=== PATIENT | male | born 1960 | race Caucasian/White ===

== ENCOUNTER 2019-02-21 20:09 | Inpatient (IN) ==
[2019-02-21] MEDS ORDERED: *HR* HYDROmorphone (PF) 1 MG/ML SYRINGE IVP ONE (20:53)
--- NOTE | 2019-02-21 21:07 | Emergency Department Note ---
Disposition Clinical Impression: Ureteral calculus, right, Hydroureter, UTI (urinary tract infection), Acute kidney injury, Obstructive uropathy, Elevated serum creatinine Hydronephrosis Qualifiers: Hydronephrosis type: unspecified Qualified Code(s): N13.30 - Unspecified hydronephrosis Disposition: Admitted As Inpatient Condition: Fair [facility] Care Provider[facility] - Forms: ED Satisfaction Letter, Work/School Release Time of Disposition: 21:31 General Adult HPI - General Chief complaint: ED Abdominal Pain Stated complaint: flank pain Time Seen by Provider: 02/21/19 20:33 Source: patient, EMS Limitations: no limitations Nursing Notes Reviewed: Yes Vital Signs Reviewed: Yes - History of Present Illness HPI Narrative: 58-year-old male presents from the [facility] for continued evaluation. Patient presented from home to the [facility] for evaluation of right-sided flank pain. Onset yesterday and initially mild. Described as sharp stabbing. Progressive. Intensive out this morning he had nausea and vomiting. Flank pain now located in the right lower flank; patient notes it has migrated since onset yesterday. Patient has no urinary pain or fever. He has never required urologic surgery for previous stones. He has a history of kidney stones. Follows with Dr. Anival Ayala, [facility]. [place] transverse patient to this facility regarding concern of impacted stone. PMH: Hypertension, hyperlipidemia, diabetes on metformin. History of bladder cancer 3 years ago. CAD with ACS status post CABG, no stent. Habits: Current every day tobacco use ROS: Positive: Right flank pain, nausea with vomiting Negative: Fever, chills, abdominal pain, dysuria Pain Scale: 9 All systems ED: reviewed and negative except as stated. Review of Systems: As Per HPI Past Medical History - Past Medical History Medical history: Reports: cancer, diabetes, hypertension, kidney stones Psychiatric history: Reports: no psych history - Social History Smoking Status: Current every day smoker Alcohol use: Reports: rarely Drug use: Reports: none Physical Exam Vital Signs Reviewed General: Patient is alert, oriented, and in no acute distress. Head: atraumatic, normocephalic Eye: normal appearance, PERRL, EOMI, no scleral icterus, no conjunctival injection ENT: mucous membranes moist, normal external ear exam Neck: normal inspection, trachea midline, full ROM Chest: normal inspection, symmetric chest rise Respiratory: Good respiratory effort. Bilateral breath sounds are clear without wheezing, crackles, or rhonchi. Cardiovascular: Regular rate and rhythm. No clicks, rubs, gallops, or murmors. Normal heart sounds. Abdomen: Bowel sounds present normoactive. Abdomen is soft, nondistended. Mild lower right flank pain. No CVA tenderness. No guarding or rebound. No organomegaly noted. Musculoskeletal: Spontaneously moving all extremities. Skin: warm, dry, intact. Neuro: GCS 15. No focal neurologic deficits observed. Psych: Patient's affect is appropriate for situation. - General Limitations: no limitations General appearance: alert, in no apparent distress Course Course Narrative: [facility]: Medications: IM Dilaudid, IM Zofran. 1 g IV Rocephin. Laboratory 21 Feb 2019 at 17:10: Serum hematology: WBC 16.5 Hgb 15.0 HCT 44.6 Platelets 303.0 Lymphocytes 4.3 Urinalysis: Clear, colorless, negative glucose, negative bilirubin, negative ketones, specific gravity 1.012, moderate blood, pH 6.5, protein 30, urobilinogen negative, nitrate positive, leukocyte esterase positive, WBC 11, RBC 134, squamous epithelial rare Serum chemistry: Sodium 138, potassium 4.1 Chloride 105 CO2 26 Glucose 206 The UA and 33 Creatinine 2.02 [comparative creatinine 01/06/19 1.15] CRP 6.5 Imaging [no disc provided from the [facility] CT abdomen pelvis without contrast per radiology read: Tiny 2 mm stone in distal right ureter, just above the bladder. The stone causes moderate right hydronephrosis and hydroureter. No stone single left ureter or either kidney. No hydronephrosis or hydroureter on the left. Spine lumbosacral 2-3 view [place] radiology impression: Findings are better visualized on concurrent CT. On this exam, no acute fracture or malalignment. Severe multilevel degenerative changes. There is severe bony neural or mental stenosis from L3-S1, worse at L5-S1. The central canal and neural gamino at her better evaluated on concurrent CT. I discussed the patient with on-call urology, Dr. Del Angel. He recommends fluids, Flomax, antibiotics. He is agreeable to see the patient in consultation with admission to the hospitalist. I discussed the patient with the hospitalist, Dr. Sosa. All questions were answered. Fluids are going. Vital Signs Temperature 97.5 F L 02/21/19 20:15 Pulse Rate 96 02/21/19 20:15 Respiratory Rate 18 02/21/19 20:15 Blood Pressure 181/99 02/21/19 20:15 O2 Sat by Pulse Oximetry 98 02/21/19 20:15 Temperature 97.5 F L 02/21/19 20:15 Pulse Rate 96 02/21/19 20:15 Respiratory Rate 18 02/21/19 20:15 Blood Pressure 181/99 02/21/19 20:15 O2 Sat by Pulse Oximetry 98 02/21/19 20:15 Oxygen Delivery Oxygen Delivery Room Air Attestation Statement - Attestation Attestation: I have seen this patient with the resident physician, I have personally evaluated this patient. I had reviewed the chart and document dictation by the resident physician and aM in agreement with the information documented by the resident physician. Please see documentation by the resident physician for complete chart including past medical history, family medical history, review of systems, current history and physical and laboratory and imaging studies. I was present for all procedures, provided direct supervision for all procedures, was present for the entirety of all procedures and provided direct guidance during the procedures. Please see documentation by the resident physician for any procedures performed.
[2019-02-21] MEDS ORDERED: 0.9 % Sodium Chloride 1,000 ML IVC ONE (21:28)
--- NOTE | 2019-02-21 21:31 | Emergency Department Note ---
Disposition Clinical Impression: Obstructive uropathy, Elevated serum creatinine, UTI (urinary tract infection) Disposition: Admitted As Inpatient Condition: Fair [facility]errals: [facility] [Primary Care Provider] - Forms: ED Satisfaction Letter, Work/School Release Time of Disposition: 21:31 General Adult HPI - General Chief complaint: ED Abdominal Pain Stated complaint: flank pain Time Seen by Provider: 02/21/19 20:33 Source: patient, EMS Limitations: no limitations - History of Present Illness Pain Scale: 9 Past Medical History - Past Medical History Medical history: Reports: cancer, diabetes, hypertension, kidney stones Psychiatric history: Reports: no psych history - Social History Smoking Status: Current every day smoker Alcohol use: Reports: rarely Drug use: Reports: none Physical Exam - General Limitations: no limitations General appearance: alert, in no apparent distress Course Vital Signs Temperature 97.5 F L 02/21/19 20:15 Pulse Rate 96 02/21/19 20:15 Respiratory Rate 18 02/21/19 20:15 Blood Pressure 181/99 02/21/19 20:15 O2 Sat by Pulse Oximetry 98 02/21/19 20:15 Temperature 97.5 F L 02/21/19 20:15 Pulse Rate 96 02/21/19 20:15 Respiratory Rate 18 02/21/19 20:15 Blood Pressure 181/99 02/21/19 20:15 O2 Sat by Pulse Oximetry 98 02/21/19 20:15 Oxygen Delivery Oxygen Delivery Room Air Attestation Statement - Attestation Attestation: I have seen this patient with the resident physician, I have personally evaluated this patient. I had reviewed the chart and document dictation by the resident physician and aM in agreement with the information documented by the resident physician. Please see documentation by the resident physician for complete chart including past medical history, family medical history, review of systems, current history and physical and laboratory and imaging studies. I was present for all procedures, provided direct supervision for all procedures, was present for the entirety of all procedures and provided direct guidance during the procedures. Please see documentation by the resident phys ician for any procedures performed. Patient presents emergency Department from the [place] for further evaluation and management and admission to the hospital for obstructive uropathy. I reviewed the patient's chart he has a 2 mm stone at the right UVJ with moderate hydronephrosis and hydroureter, and has a increased serum creatinine of 2.02 from 1.15 from 2 months ago, with a white blood cell count of 16,500 with a bandemia, as well as urinalysis suggestive of UTI positive nitrites positive bacteria. Patient received IV pain medication [facility] We contacted urology who is providing consultation, and recommended Flomax, which we had already ordered, the patient requested some other pain medication he was given more IV hydromorphone. Hospitalist was contacted for admission and will this patient for further evaluation and management of the above findings. Patient was hemodynamically normal, without significant tachycardia or hypotension or fever here in the ER. Admitted to medicine for further management.
[2019-02-21] MEDS ORDERED: Naloxone 0.4 MG/ML INJ IVP PRN (21:52)
[2019-02-21] MEDS ORDERED: Ondansetron 4 MG/2 ML VIAL IVP PRN (21:52)
--- NOTE | 2019-02-21 21:52 | Internal Med History&Physical ---
<Giovani Rizo S - Last Filed: 02/21/19 22:19> Date of Encounter: 02/21/19 Time of Encounter: 22:19 Internal Medicine - H&P: HPI Chief complaint: kidney stnoe Admitted From: Emergency Dept Plans for Post Hospital Care: Home History of present illness: Mr. Varghese is a 58 year old male with PMH of T2DM, morbid obesity, hx of CABG, hx of CHF (no records), HTN, and tobacco abuse. He presents as a transfer from the [place] for a 1 day hx of right flank pain, right sided. He denies any radiation. He denies any fevers/chills but did have some nausea/vomiting this morning, nonbloody. He states he has had a decreased appetite as of today. He states he has never been to the hospital for a kidney stone before but thinks he might have had one in the past. He states that he has had no recent diet changes but has tried to cut down on pop. He has no family hx of kidney stones. At the [facility] he was found to have a UTI and kidney stone on imaging. He was given IM rocephin 1g. He was then transferred to [facility] for further workup and evaluation. He was started on fluids and urology was consulted. He will be made NPO after midnight in case of intervention. Past Med Surg Social Fam HX - Past Medical History Medical history: cancer, diabetes, hypertension, kidney stones Additional medical history: Bladder cancer Psychiatric history: no psych history - Past Surgical History Additional surgical history: Double bypass - Social History Smoking Status: Current every day smoker Alcohol use: rarely Drug use: none - Family History Mother Adopted: No Hx Family Endocrine Disorder: Yes Father Hx Family Endocrine Disorder: Yes (t2dm) All Systems PM: A 10-system review of systems was performed and is negative for pertinent findings except as documented above in the HPI. - Constitutional Constitutional: anorexia, no chills, no fever(s) - EENT Eyes: no blurry vision, no change in vision Ears: no tinnitus - Cardiovascular Cardiovascular ROS IM: no chest pain, no dyspnea, no irregular heart rhythm, no palpitations - Respiratory Respiratory: no cough, no dyspnea, no dyspnea on exertion - Gastrointestinal Gastrointestinal: vomiting, no abdominal pain - Genitourinary Genitourinary ROS male: dysuria, flank pain, no hematuria - Musculoskeletal Musculoskeletal ROS IM: back pain, no numbness, no tingling - Integumentary Integumentary IM: no non-healing lesions, no unusual bruising - Neurological Neurological ROS: no dizziness, no numbness, no tingling - Psychiatric Psychiatric: no confusion - Hematologic/Lymphatic Hematologic/Lymphatic: no easy bleeding, no easy bruising - Constitutional Vitals: Temp Pulse Resp BP Pulse Ox 97.5 F L 96 18 181/99 98 02/21/19 20:15 02/21/19 20:15 02/21/19 20:15 02/21/19 20:15 02/21/19 20:15 General appearance: Present: cooperative, A&O X 3, obese Exam: general - aox3, no acute distress, sitting in bed speaking in full sentences heent - ncat, MMM eyes - no scleral icterus cardio - s1s2, cta, no mrg, tacycardia lungs - decreased breath sounds, not in respiratory distress, no wheeze/rhonchi/rales abd - soft, NTND, obese, hernia abd side, surgical scar on right abd back - mild cva tenderness right side, no bruising extremities - moves all extremities equally, sensation intact, strength 5/5, no edema neuro - no fnd psych - appropriate mood/affect skin - warm, dry, intact - Assessment and Plan (1) Sepsis Current Visit: Yes Status: Acute Assessment and plan: Pt with 1 day hx of right flank pain - went to the [facility], where he was given 1g rocephin IM - labs revealed a UTI and CT evidence of stone - sepsis secondary to complicated UTI, kidney stone [facility] CT report, disc not provided: - CT abdomen pelvis without contrast per radiology read: Tiny 2 mm stone in distal right ureter, just above the bladder. The stone causes moderate right and hydroureter. No stone single left ureter or either kidney. No hydronephrosis or hydroureter on the left - Spine lumbosacral 2-3 view [place] radiology impression: Findings are better visualized on concurrent CT. On this exam, no acute fracture or malalignment. Severe multilevel degenerative changes. There is severe bony neural or mental stenosis from L3-S1, worse at L5-S1. The central canal and neural gamino at her better evaluated on concurrent CT. UA positive for nitrates, leukocyte esterase and WBC Meets SIRS criteria for white count and tacycardia Plan: - pt receiving bolus of fluids now, will continue IVF as per sepsis protocol for a total of ~3.6 L - rocephin 2g IVP q24hr, received day #1 at [facility] - blood cx pending - urine cx pending - tamsulosin daily - oxycodone prn pain - strain urine for stone prn voiding - zofran prn nausea/vomiting - consult to urology, possible intervention tomorrow - FEN: ADA diet, NPO after midnight for urology intervention - dispo: will be admitted for further treatment, resolution of sepsis Qualifiers: Sepsis type: sepsis due to unspecified organism Qualified Code(s): A41.9 - Sepsis, unspecified organism (2) Acute kidney injury Current Visit: Yes Status: Acute Assessment and plan: Creatinine elevated as per [facility] labs. - Creatinine 2.02 [comparative creatinine 01/06/19 1.15 - likely pre-renal from poor PO intake vs post renal from obstruction Plan: - avoid nephrotoxins - I&O strict - renally dose medication if needed - continue to monitor renal fxn with AM labs - IVF as above - urology consulted, ?intervention in AM (3) Ureteral calculus, right Current Visit: Yes Status: Acute Assessment and plan: CT abdomen pelvis without contrast per radiology read: Tiny 2 mm stone in distal right ureter, just above the bladder. The stone causes moderate right hydronephrosis and hydroureter. No stone single left ureter or either kidney. No hydronephrosis or hydroureter on the left. Spine lumbosacral 2-3 view [place] radiology impression: Findings are better visualized on concurrent CT. On this exam, no acute fracture or malalignment. Severe multilevel degenerative changes. There is severe bony neural or mental stenosis from L3-S1, worse at L5-S1. The central canal and neural gamino at her better evaluated on concurrent CT. See plan as above. (4) Hydronephrosis Current Visit: Yes Status: Acute Assessment and plan: As evidenced on CT scan, see above for plan. Qualifiers: Hydronephrosis type: with renal calculous obstruction Qualified Code(s): N13.2 - Hydronephrosis with renal and ureteral calculous obstruction (5) CHF (congestive heart failure) Current Visit: No Status: Chronic Assessment and plan: Pt reports hx of CHF, no records of previous ECHO on [facility]. NOT in acute exacerbation. Qualifiers: Heart failure type: unspecified Heart failure chronicity: chronic Qualified Code(s): I50.9 - Heart failure, unspecified (6) History of two vessel coronary artery bypass graft Current Visit: No Status: Chronic Assessment and plan: pt is s/p double bypass. No hx of cath report on [employer]. (7) Tobacco abuse Current Visit: No Status: Chronic Assessment and plan: current everyday smoker, offered nrt and declines. (8) T2DM (type 2 diabetes mellitus) Current Visit: No Status: Chronic Assessment and plan: Pt with hx of T2DM. Will hold home rx when reconciled. MDSS. ADA diet. Qualifiers: Diabetes mellitus terminal clerk insulin use: unspecified senior care insulin use status Diabetes mellitus complication status: with unspecified complications Qualified Code(s): E11.8 - Type 2 diabetes mellitus with unspecified complications (9) Obesity Current Visit: No Status: Chronic Assessment and plan: BMI 38.7, counsled. Qualifiers: Obesity type: due to excess calories Obesity classification: adult class 2 (BMI 35 - 39.9) Serious obesity comorbidity presence: without serious comorbidity Body mass index: BMI 38.0-38.9 Qualified Code(s): E66.09 - Other obesity due to excess calories; Z68.38 - Body mass index (BMI) 38.0-38.9, adult (10) DVT prophylaxis Current Visit: Yes Status: Acute Assessment and plan: sq heparin (11) UTI (urinary tract infection) Current Visit: Yes Status: Acute Assessment and plan: [facility]rites and leukocyte esterase. 11 WBC, 134 RBC, rare squamous - see plan as above Qualifiers: Urinary tract infection type: acute cystitis Hematuria presence: without hematuria Qualified Code(s): N30.00 - Acute cystitis without hematuria (12) Hypertension Current Visit: Yes Status: Acute Assessment and plan: BP systolic 180's. Lopressor IVP q6hr prn SBPP>160, hold for SBP<100. Will restart home meds when reconciled. Qualifiers: Hypertension type: essential hypertension Qualified Code(s): I10 - Essential (primary) hypertension - Time Spent With Patient Total time spent is greater than 50% in coordination of care (as documented) at patient's floor/unit and/or counseling patient: 25 - 35 minutes <Dennis Sosa - Last Filed: 02/21/19 23:13> Date of Encounter: 02/21/19 Internal Medicine - H&P: HPI History of present illness: Mr. Varghese is a 58 year old male All Systems PM: A 10-system review of systems was performed and is negative for pertinent findings except as documented above in the HPI. - Constitutional Vitals: Temp Pulse Resp BP Pulse Ox 97.5 F L 96 18 181/99 98 02/21/19 20:15 02/21/19 20:15 02/21/19 20:15 02/21/19 20:15 02/21/19 20:15 - Assessment and Plan (1) Ureteral calculus, right Current Visit: Yes Status: Acute (2) Hydronephrosis Current Visit: Yes Status: Acute Qualifiers: Hydronephrosis type: with renal calculous obstruction Qualified Code(s): N13.2 - Hydronephrosis with renal and ureteral calculous obstruction (3) UTI (urinary tract infection) Current Visit: Yes Status: Acute Qualifiers: Urinary tract infection type: acute cystitis Hematuria presence: without hematuria Qualified Code(s): N30.00 - Acute cystitis without hematuria (4) Acute kidney injury Current Visit: Yes Status: Acute (5) CHF (congestive heart failure) Current Visit: No Status: Chronic Qualifiers: Heart failure type: unspecified Heart failure chronicity: chronic Qualified Code(s): I50.9 - Heart failure, unspecified (6) History of two vessel coronary artery bypass graft Current Visit: No Status: Chronic (7) Tobacco abuse Current Visit: No Status: Chronic (8) T2DM (type 2 diabetes mellitus) Current Visit: No Status: Chronic Qualifiers: Diabetes mellitus terminal clerk insulin use: unspecified senior care insulin use status Diabetes mellitus complication status: with unspecified complications Qualified Code(s): E11.8 - Type 2 diabetes mellitus with unspecified complications (9) Obesity Current Visit: No Status: Chronic Qualifiers: Obesity type: due to excess calories Obesity classification: adult class 2 (BMI 35 - 39.9) Serious obesity comorbidity presence: without serious comorbidity Body mass index: BMI 38.0-38.9 Qualified Code(s): E66.09 - Other obesity due to excess calories; Z68.38 - Body mass index (BMI) 38.0-38.9, adult (10) DVT prophylaxis Current Visit: Yes Status: Acute (11) Sepsis Current Visit: Yes Status: Acute Qualifiers: Sepsis type: sepsis due to unspecified organism Qualified Code(s): A41.9 - Sepsis, unspecified organism (12) Hypertension Current Visit: Yes Status: Acute Qualifiers: Hypertension type: essential hypertension Qualified Code(s): I10 - Essential (primary) hypertension - Time Spent With Patient Total time spent is greater than 50% in coordination of care (as documented) at patient's floor/unit and/or counseling patient: - Attending Attestation I have seen and examined the patient with Dr. Rizo and agree with his/her assessment and plan. 58-year-old male with history of diabetes, CAD status post CABG, hypertension, nephrolithiasis, was transfer from [place] due to right flank pain and was noted to have distal right ureteric stone associated with hydronephrosis. Creatinine was elevated at 2.0 from baseline of 1.1. Urinalysis was also positive for nitrite and leukocyte esterase and patient also had leukocytosis of 16. On exam, patient is not febrile and hemodynamically stable. He does not have any significant R CVA tenderness and reports improvement in his symptoms after the administration of pain meds. Will continue IV fluid, IV Rocephin (1 dose given at the [facility]), and keep him nothing by mouth after midnight in case he needs any urologic intervention tomorrow morning. Appreciate Urology input. Dennis Sosa MD
[2019-02-21] MEDS ORDERED: D5% in Water 1,000 ML IVC PRN (21:53)
[2019-02-21] MEDS ORDERED: *HR* Dextrose 50 % in Water (Syg) 50 ML SYRINGE IVP PRN (21:53)
[2019-02-21] MEDS ORDERED: Dextrose Gel 15 GM/37.5 ML TUBE PO PRN ×2 (21:53)
[2019-02-21] MEDS ORDERED: Insulin LISPRO 300 UNITS/3 ML VIAL SQ SCH (22:00)
[2019-02-21] MEDS ORDERED: *HR* Metoprolol 5 MG/5 ML VIAL IVP PRN (22:04)
[2019-02-21] MEDS ORDERED: OXYCODONE Oral CONC 10 MG/0.5 ML ORAL.SYG SL PRN (22:23)
[2019-02-22] MEDS ORDERED: cefTRIAXone 2,000 MG in Water for inj. (sterile) 20 ML 20 ML IVP SCH ×3 (00:01→17:00)
[2019-02-22] MEDS: Insulin LISPRO 300 UNITS/3 ML VIAL SQ SCH ×4 (01:59→17:03)
[2019-02-22] MEDS: *HR* Heparin 5,000 UNIT/ML VIAL SQ SCH ×3 (01:59→17:02)
[2019-02-22] MEDS: 0.9 % Sodium Chloride 1,000 ML IVC SCH ×2 (03:25→22:02)
[2019-02-22 07:27] LABS: Sodium, Urine 78.5 mEq/L
[2019-02-22 08:05] LABS: Hematocrit 43.4 % (37.5-50.1); Hemoglobin 13.8 g/dL (12.9-16.9); Mean Corpuscular HGB Conc 31.8 g/dL (31.6-35.5); Mean Corpuscular Hemoglobin 29.1 pg (28.0-33.3); Mean Corpuscular Volume 91.6 fL (83.0-100.0); Mean Platelet Volume 10.2 fL (9.4-12.4); Platelet Count 255 K/mcL (140-400); Red Blood Count 4.74 M/mcL (4.19-5.50); Red Cell Distribution Width 13.4 % (11.5-14.5)
[2019-02-22 08:24] LABS: Calcium 8.9 mg/dL (8.6-10.3); Potassium 4.4 mEq/L (3.5-5.1)
--- NOTE | 2019-02-22 09:30 | Urology - Consult Note ---
Date of Encounter: 02/22/19 Time of Encounter: 08:40 - Assessment and Plan (1) Acute kidney injury Current Visit: Yes Status: Acute Assessment and plan: Patient is a 58-year-old male who presents with acute kidney injury following a 2 mm ureteral stone. Patient is tentatively scheduled for ureteroscopic stone extraction later this afternoon with Dr. Pacheco. Anticipate renal function to return to baseline postoperatively. (2) UTI (urinary tract infection) Current Visit: Yes Status: Acute Assessment and plan: Patient is a 58-year-old male who presents with a nitrate positive urinary tract infection. Urine culture is pending. Vital signs are currently stable and afebrile. White blood cell count is elevated to 15.8. Patient is receiving IV Rocephin. Qualifiers: Urinary tract infection type: acute cystitis Hematuria presence: without hematuria Qualified Code(s): N30.00 - Acute cystitis without hematuria (3) Ureteral calculus, right Current Visit: Yes Status: Acute Assessment and plan: Patient is a 58-year-old male who presents with a 2 mm right distal ureteral stone. Patient's pain is currently well controlled. We discussed surgical risks and benefits, and patient verbalized understanding. Patient signed consent for a cystoscopy, right retrograde pyelogram and right ureteral stent placement. Patient will remain nothing by mouth and anticipate surgery later this afternoon with Dr. Pacheco. Urology CN:HPI Consult date: 02/22/19 Reason for consult Urology: Other (right ureteral stone; UTI) Requesting physician: Melo Eli History of present illness: Patient is a 58-year-old male who presents with a 2 mm right UVJ stone, acute kidney injury and urinary tract infection. Patient initially presented to the [facility] with a one-day history of right flank pain and nausea. Patient reports no prior confirmed history of renal stones, although, he believes he may have passed one at home approximately 6 months ago. Patient has a positive family history of renal stones through his daughter. Patient underwent a CT of the abdomen and pelvis at the [facility] revealing a distal, 2 mm right ureterovesical stone and a urinalysis was nitrite positive. Patient's white blood cell count is 16.5. Patient denies any fever, chills, gross hematuria, dysuria, frequency, urgency or incontinence. Serum creatinine on admission was 2.02, and current serum creatinine is 2.64. Patient has a h istory of bladder cancer, and he has not experienced a recurrence in 3 years. Patient undergoes annual cystoscopy with [facility] urologist, Dr. Ayala, in [place]. Patient underwent 2 rounds of BCG, chemotherapy and TURBT 2. Patient has a long-standing history of tobacco abuse. Past Med Surg Social Fam HX - Past Medical History Medical history: cancer, diabetes, hypertension, kidney stones Additional medical history: Bladder cancer Psychiatric history: no psych history - Past Surgical History Additional surgical history: Double bypass - Social History Smoking Status: Current every day smoker Packs per day: 1 Smokeless Tobacco Status: No Alcohol use: none Drug use: none - Family History Mother Adopted: No Hx Family Endocrine Disorder: Yes Father Hx Family Endocrine Disorder: Yes (t2dm) Medications and Allergies Aspirin [Adult Aspirin] 81 mg PO DAILY 02/21/19 [History] Gabapentin [Neurontin] 300 mg PO HS 02/21/19 [History] GlipiZIDE [Glipizide Xl] 7.5 mg PO BID 02/21/19 [History] Metformin HCl [Glucophage] 1,000 mg PO BID 02/21/19 [History] Metoprolol [Lopressor] 25 mg PO BID 02/21/19 [History] Oxybutynin [Ditropan] 5 mg PO DAILY 02/21/19 [History] Ranitidine HCl [Zantac] 300 mg PO HS 02/21/19 [History] Simvastatin [Zocor] 40 mg PO HS 02/21/19 [History] Tamsulosin HCl [Flomax] 0.4 mg PO DAILY 02/21/19 [History] Allergy/AdvReac Type Severity Reaction Status Date / Time No Known Allergies Allergy Verified 02/21/19 22:41 Review of Systems - Constitutional no chills, no fatigue, no fever(s) - EENT Nose, mouth and throat: no dizziness, no headache(s) - Cardiovascular no chest pain, no diaphoresis, no dyspnea - Respiratory no cough, no dyspnea - Gastrointestinal nausea, no abdominal pain, no vomiting - Genitourinary flank pain, no change in urinary stream, no difficulty urinating, no dysuria, no hematuria, no urinary frequency, no urinary hesitancy, no urinary incontinence, no urinary urgency - Musculoskeletal back pain, no muscle weakness - Integumentary no erythema, no rash - Neurological no confusion, no syncope - Psychiatric no anxiety, no confusion - Hematologic/Lymphatic no easy bleeding, no easy bruising - Allergic/Immunologic no throat swelling, no wheezing Exam Initial Vital Signs Temp Pulse Resp BP Pulse Ox 97.5 F L 96 18 181/99 98 02/21/19 20:15 02/21/19 20:15 02/21/19 20:15 02/21/19 20:15 02/21/19 20:15 - General physical appearance Present: no distress, no pain - Eyes Present: PERRL, normal ocular movement - ENT Present: normal nares, no hearing loss, no congestion - Neck Present: no masses, trachea midline, no lymphadenopathy - Respiratory Present: normal respiratory effort - Cardiovascular Cardiovascular exam IM: RRR - Abdomen Abdomen: Present: soft, non tender - Integumentary Present: no rash, no abnormal pigmentation - Neurologic Present: normal coordination - Musculoskeletal Present: other (normal posture ) Urology Results - Labs 02/22/19 07:14 02/22/19 07:14 Abnormal lab results WBC 15.8 K/mcL (4.3-11.1) H 02/22/19 07:14 BUN 36 mg/dL (6-20) H 02/22/19 07:14 2.64 mg/dL (0.70-1.30) H 02/22/19 07:14 Est GFR ( Amer) 30 (> 60) L 02/22/19 07:14 Est GFR (Non-Af Amer) 25 (> 60) L 02/22/19 07:14 Glucose 198 mg/dL (70-105) H 02/22/19 07:14 302 (280-300) H 02/22/19 07:14 Diabetes panel 02/22/19 Range/Units 07:14 Sodium 139 (136-145) mEq/L Potassium 4.4 (3.5-5.1) mEq/L Chloride 104 (98-107) mEq/L Carbon Dioxide 25 (23-29) mEq/L BUN 36 H (6-20) mg/dL Creatinine 2.64 H (0.70-1.30) mg/dL Glucose 198 H (70-105) mg/dL Calcium 8.9 (8.6-10.3) mg/dL Calcium panel 02/22/19 Range/Units 07:14 Calcium 8.9 (8.6-10.3) mg/dL Pituitary panel 02/22/19 Range/Units 07:14 Sodium 139 (136-145) mEq/L Potassium 4.4 (3.5-5.1) mEq/L Chloride 104 (98-107) mEq/L Carbon Dioxide 25 (23-29) mEq/L BUN 36 H (6-20) mg/dL Creatinine 2.64 H (0.70-1.30) mg/dL Glucose 198 H (70-105) mg/dL Calcium 8.9 (8.6-10.3) mg/dL Adrenal panel 02/22/19 Range/Units 07:14 Sodium 139 (136-145) mEq/L Potassium 4.4 (3.5-5.1) mEq/L Chloride 104 (98-107) mEq/L Carbon Dioxide 25 (23-29) mEq/L BUN 36 H (6-20) mg/dL Creatinine 2.64 H (0.70-1.30) mg/dL Glucose 198 H (70-105) mg/dL Calcium 8.9 (8.6-10.3) mg/dL All other labs normal. - Imaging CT scan - abdomen: report reviewed CT scan - pelvis: report reviewed Consult Discharge Plan - Plan [facility] Care Provider[facility] -
[2019-02-22] MEDS ORDERED: traMADol 50 MG TABLET PO PRN ×2 (10:32→14:45)
[2019-02-22] MEDS ORDERED: OXYCODONE Oral CONC 10 MG/0.5 ML ORAL.SYG SL PRN ×2 (10:39→14:45)
--- NOTE | 2019-02-22 13:02 | Anesthesia Evaluation PreOp ---
Date of Encounter: 02/22/19 Time of Encounter: 13:00 - Past History Planned Operation: Cysto, Right retrograde pyelogram, Stent Insertion Cardiac History: CHF, HTN, Cardiac Surgery (x2 approx & years ago) Pulmonary History: Smoker [employer] History: Other Other Medical History: Renal (Stones, hydroneprosis, YANETH), Diabetes Type II, Other (obesity, bladder Ca ( 2 rounds of BCG, chemotherapy and TURBT 2)) Anesthesia History: Past Anesthesia (CABG, TURBT) Alcohol Use: none Drug use: none Medications and Allergies Aspirin [Adult Aspirin] 81 mg PO DAILY 02/21/19 [History] Gabapentin [Neurontin] 300 mg PO HS 02/21/19 [History] GlipiZIDE [Glipizide Xl] 7.5 mg PO BID 02/21/19 [History] Metformin HCl [Glucophage] 1,000 mg PO BID 02/21/19 [History] Metoprolol [Lopressor] 25 mg PO BID 02/21/19 [History] Oxybutynin [Ditropan] 5 mg PO DAILY 02/21/19 [History] Ranitidine HCl [Zantac] 300 mg PO HS 02/21/19 [History] Simvastatin [Zocor] 40 mg PO HS 02/21/19 [History] Tamsulosin HCl [Flomax] 0.4 mg PO DAILY 02/21/19 [History] Allergy/AdvReac Type Severity Reaction Status Date / Time No Known Allergies Allergy Verified 02/21/19 22:41 - Meds/Allergy Pre-op Review Medications Reviewed: Yes Allergies Reviewed: Yes Beta Blockers on Current Med List: Yes If Beta Blockers taken, Date/Time (Last Dose taken): 02:08 today Anesthesia Results - Labs 02/22/19 07:14 02/22/19 07:14 Anesthesia Exam Vital Signs/O2 Sat, Most Current Temp Pulse Resp BP Pulse Ox 97.8 F 82 18 156/90 92 02/22/19 11:35 02/22/19 11:35 02/22/19 11:35 02/22/19 11:35 02/22/19 11:35 Blood glucose: 164 NPO (# of Hours): > 8 hrs Pain Scale: 0 Pain Scale Used: Numeric (1 - 10) - HEENT Pupil (Motor): Pupils equal, EOMI Mallampati: III Teeth: Normal Oral Opening: Greater than 3 - [employer] LOC: Oriented [employer] Motor: Normal RUE, Normal LUE, Normal RLE, Normal LLE, Normal Face [employer] Sensory: Normal: RUE, LUE, RLE, LLE, Face - Cardiac Rhythm: Regular Murmur: None JVD: No Carotid Bruit: No - Pulmonary Breath Sounds: bilateral Clear Respiratory Effort: Symmetrical Anesthesia Assess/Plan ASA Score: 3 Level of consciousness: Cooperative Anesthetic Plan: General Autologous Blood: Yes Monitoring Plan: Standard Monitors Recovery Plan: PACU
[2019-02-22] MEDS ORDERED: Lidocaine -MPF 2% 2 ML VIAL ONE (13:09)
[2019-02-22] MEDS ORDERED: *HR* FentaNYL (PF) 100 MCG/2 ML VIAL ONE (13:09)
[2019-02-22] MEDS ORDERED: *HR* Midazolam HCl 2 MG/2 ML VIAL ONE (13:09)
[2019-02-22] MEDS ORDERED: Isovue-300 50 ML VIAL ONE (13:09)
[2019-02-22] MEDS ORDERED: *HR* Propofol 200 MG/20 ML VIAL IVP ONE ×2 (13:10→13:38)
[2019-02-22] MEDS ORDERED: Albuterol 2.5 MG/3 ML NEBULIZER IH ONE ×2 (13:51→14:45)
[2019-02-22] MEDS ORDERED: *HR* OxyCODONE Immed Rel 5 MG TABLET PO PRN ×2 (13:51→14:45)
[2019-02-22] MEDS ORDERED: *HR* Promethazine 25 MG/ML VIAL IVP PRN ×2 (13:51→14:45)
[2019-02-22] MEDS ORDERED: Ondansetron 4 MG/2 ML VIAL IVP ONE ×2 (13:51→14:45)
[2019-02-22] MEDS ORDERED: *HR* HYDROmorphone (PF) 1 MG/ML SYRINGE IVP PRN ×2 (13:51→14:45)
[2019-02-22] MEDS ORDERED: *HR* Labetalol 20 MG/4 ML SYRINGE IVP PRN ×2 (13:51→14:45)
--- NOTE | 2019-02-22 14:42 | Operative Note ---
Date of procedure: 02/22/19 Pre-op diagnosis: Right ureteral catheter was, UTI Post-op diagnosis: same Procedure: Cystoscopy, right retrograde ureteral pyelography with intraoperative interpretation of radial graphic images in real time by surgeon to facilitate procedure, right double-J stent placement, attempted basket extraction. Implants: 6 x 26 right double-J stent Complications: None Anesthesia: GETA Surgeon: Fortunato Pacheco Was there an property management assistant present: No Estimated blood loss (cc): 0 Specimen: None Condition: stable Disposition: PACU Procedure in Detail: 58-year-old gentleman transferred from the [facility] to our facility for obstructing distal right ureteral stone in setting of active UTI. Urgent urinary diversion is indicated. The patient brought to the operating theater placed on table in supine position. Is identified by name and administered a general anesthetic. The patient placed dorsal lithotomy prepped and draped in the normal sterile fashion. A cystoscope was inserted urethral meatus and advanced with the bladder under direct visualization. There were no mucosal abdomen bowel these. An open-ended catheter was placed the tip of the right ureteral orifice and with gentle injection of contrast a right retrograde ureteropyelogram was performed. Intraoperative interpretation of radial graphic images in real time by surgeon revealed obstruction at the level the distal ureter with proximal hydroureteronephrosis. No definitive filling defect was appreciated. Based on this finding urinary diversion was indicated. The stone was noted be at the level of the ureterovesical junction via CT report. Based on this finding through the existing open-ended catheter a stone basket was placed in the distal ureter. 3 cancer used to entrap a stone in the basket. Known stone was captured. Thus, over the existing Glidewire a 6 x 26 right of the stent was advanced. Once the stent was confirmed in good position fluoroscopically the treatment was completed.
[2019-02-22] MEDS ORDERED: *HR* Dextrose 50 % in Water (Syg) 50 ML SYRINGE IVP PRN (14:45)
[2019-02-22] MEDS ORDERED: Ondansetron 4 MG/2 ML VIAL IVP PRN (14:45)
[2019-02-22] MEDS ORDERED: Naloxone 0.4 MG/ML INJ IVP PRN (14:45)
[2019-02-22] MEDS ORDERED: Dextrose Gel 15 GM/37.5 ML TUBE PO PRN ×2 (14:45)
[2019-02-22] MEDS ORDERED: 0.9 % Sodium Chloride 1,000 ML IVC SCH (14:45)
[2019-02-22] MEDS ORDERED: *HR* Metoprolol 5 MG/5 ML VIAL IVP PRN (14:45)
[2019-02-22] MEDS ORDERED: D5% in Water 1,000 ML IVC PRN (14:45)
--- NOTE | 2019-02-22 15:20 | Internal Med Progress Note ---
Hospitalist Progress Note - Encounter Date of Encounter: 02/22/19 Time of Encounter: 15:18 - Subjective Interval History: I have seen and evaluated the patient at bedside. Patient reports resolution of his abdominal and back pain. denies chest pain, shortness of breath, nausea or vomiting - Exam Vitals: Temp Pulse Resp BP Pulse Ox 98.4 F 95 14 144/87 94 02/22/19 15:14 02/22/19 15:14 02/22/19 15:14 02/22/19 15:14 02/22/19 15:14 Exam: Vitals: Reviewed General: Obese, Alert and oriented x4. In no distress Skin: multiple healed scars HEENT: EOM, pupils equal, round and reactive. Cardiovascular: RRR, normal S1 & S2, no rubs, murmurs or gallops. Lungs: CTA b/l, no wheezes or crackles. Abdomen: Obese, soft, non-tender, no rigidity. Extremities: No deformity, no edema or tenderness, no joint swelling or clubbing. Neurological: Normal cognition and motor skills. Rest of the physical exam is non contributory - Assessment and Plan (1) Ureteral calculus, right Current Visit: Yes Status: Acute Assessment and Plan: urology consulted. patient scheduled for stone removal today. continue pain control with oxycodone 5mg SubL Q6HRs. (2) Hydronephrosis Current Visit: Yes Status: Acute Assessment and Plan: plan of care as above. (3) UTI (urinary tract infection) Current Visit: Yes Status: Acute Assessment and Plan: Continue ceftriaxone 1 g IV every 24 hours. Urine culture sent and the report. (4) Acute kidney injury Current Visit: Yes Status: Acute Assessment and Plan: Most likely obstructive uropathy. Continue IV hydration, decrease fluids to 75 ml/hr x2 bags total, monitor for signs of volume overload. patient with a Hx of CHF. will re-assess kidney function in the morning. (5) CHF (congestive heart failure) Current Visit: No Status: Chronic Assessment and Plan: patient is euvolemic. not on diuretics as outpatient. TTE order as patient needs IV hydration due to YANETH. and unknown E.F. strict intake and output (6) History of two vessel coronary artery bypass graft Current Visit: No Status: Chronic (7) Tobacco abuse Current Visit: No Status: Chronic (8) T2DM (type 2 diabetes mellitus) Current Visit: No Status: Chronic Assessment and Plan: carb controlled diet. will add levemir 5 units hs, continue lispro low dose sliding scale ac. (9) Obesity Current Visit: No Status: Chronic (10) Sepsis Current Visit: Yes Status: Acute (11) Hypertension Current Visit: Yes Status: Suspected DVT Prophylaxis: intermittent pneumatic compression for dvt prophylaxis - Summary of Assessment and Plan Summary of Assessment and Plan: patient to remain the hospital due to YANETH. on IV hydration. schedule for renal stone removal. - Time Spent with Patient Total time spent is greater than 50% in coordination of care (as documented) at patient's floor/unit and/or counseling patient: Greater than 35 minutes (40) Plan of Care Discussed with: patient (and the nurse.) Internal Medicine: Result - Labs CBC & Chem 7: 02/22/19 07:14 02/22/19 07:14 Labs: Short CBC 02/22/19 Range/Units 07:14 WBC 15.8 H (4.3-11.1) K/mcL Hgb 13.8 (12.9-16.9) g/dL Hct 43.4 (37.5-50.1) % Plt Count 255 (140-400) K/mcL BMP 02/22/19 07:14 Sodium 139 Potassium 4.4 Chloride 104 Carbon Dioxide 25 BUN 36 H Creatinine 2.64 H Glucose 198 H Calcium 8.9 - Impressions Impressions Retrograde Pyelogram 02/22/19 14:28 IMPRESSION: Intraprocedural fluoroscopic spot images as above. See separate procedure report for more information. D/ / Jay Johnston MD / Jay Johnston MD Interpreting Provider: Jay Johnston MD Consult Discharge Plan - Plan [facility]errals: [facility] [Primary Care Provider] - (2) Hydronephrosis Qualifiers: Hydronephrosis type: with renal calculous obstruction Qualified Code(s): N13.2 - Hydronephrosis with renal and ureteral calculous obstruction (3) UTI (urinary tract infection) Qualifiers: Urinary tract infection type: acute cystitis Hematuria presence: without hematuria Qualified Code(s): N30.00 - Acute cystitis without hematuria (5) CHF (congestive heart failure) Qualifiers: Heart failure type: unspecified Heart failure chronicity: chronic Qualified Code(s): I50.9 - Heart failure, unspecified (8) T2DM (type 2 diabetes mellitus) Qualifiers: Diabetes mellitus long term care pharmacist insulin use: unspecified long term care pharmacist insulin use status Diabetes mellitus complication status: with unspecified complications Qualified Code(s): E11.8 - Type 2 diabetes mellitus with unspecified complications (9) Obesity Qualifiers: Obesity type: due to excess calories Obesity classification: adult class 2 (BMI 35 - 39.9) Serious obesity comorbidity presence: without serious com orbidity Body mass index: BMI 38.0-38.9 Qualified Code(s): E66.09 - Other obesity due to excess calories; Z68.38 - Body mass index (BMI) 38.0-38.9, adult (10) Sepsis Qualifiers: Sepsis type: sepsis due to unspecified organism Qualified Code(s): A41.9 - Sepsis, unspecified organism (11) Hypertension Qualifiers: Hypertension type: essential hypertension Qualified Code(s): I10 - Essential (primary) hypertension
--- NOTE | 2019-02-22 16:08 | Anesthesia Evaluation Post Op ---
Date of Encounter: 02/22/19 Time of Encounter: 15:29 - Discharge PostOp Status: Transfer Patient to floor (Patient's vital signs have been reviewed. Patient is stable postoperatively and has adequately recovered from anesthesia. Patient is determined to have stable airway patency and respiratory function including respiratory rate and oxygen saturation. Patient has a stable heart rate, blood pressure and adequate hydration. Patients mental status is acceptable. Patients temperature is appropriate. Pain and nausea are adequately controlled.)
[2019-02-22] MEDS ORDERED: Perflutren Lipid Microsphere 1.3 ML in 0.9 % Sodium Chloride 8.7 ML IVP ONE (19:11)
[2019-02-22] MEDS: Insulin DETEMIR 100 UNIT/ML X5UNITS SQ SCH (20:15)
[2019-02-22] MEDS ORDERED: Insulin LISPRO 300 UNITS/3 ML VIAL SQ SCH (21:00)
[2019-02-22] MEDS ORDERED: Famotidine 20 MG TABLET PO SCH (21:00)
[2019-02-22] MEDS: Gabapentin 300 MG CAPSULE PO SCH (22:03)
[2019-02-23 04:56] LABS: Acinetobacter baumannii by PCR Not Detected (Not Detect); Candida albicans by PCR Not Detected (Not Detect); Candida glabrata by PCR Not Detected (Not Detect); Candida krusei by PCR Not Detected (Not Detect); Candida parapsilosis by PCR Not Detected (Not Detect); Candida tropicalis by PCR Not Detected (Not Detect); Enterobacter cloacae Cmplx PCR Not Detected (Not Detect); Enterobacteriaceae by PCR Not Detected (Not Detect); Enterococcus by PCR Not Detected (Not Detect); Escherichia coli by PCR Not Detected (Not Detect); Klebsiella oxytoca by PCR Not Detected (Not Detect); Klebsiella pneumoniae by PCR Not Detected (Not Detect); Proteus by PCR Not Detected (Not Detect); Pseudomonas aeruginosa by PCR Not Detected (Not Detect); Serratia marcescens by PCR Not Detected (Not Detect); Staphylococcus aureus by PCR Not Detected (Not Detect); Staphylococcus by PCR DETECTED (Not Detect); Streptococcus agalactiae(B)PCR Not Detected (Not Detect); Streptococcus by PCR Not Detected (Not Detect); Streptococcus pneumoniae PCR Not Detected (Not Detect); Streptococcus pyogenes (A) PCR Not Detected (Not Detect); mecA Methicillin-Resist Gene DETECTED (Not Detect)
[2019-02-23] MEDS: *HR* Heparin 5,000 UNIT/ML VIAL SQ SCH ×2 (05:13→17:07)
--- NOTE | 2019-02-23 05:26 | Event Note ---
Date of Encounter: 02/23/19 Time of Encounter: 05:24 Nurse alerted of blood cx and serology results. Blood cx (+) preliminary for gram positive cocci. Serology (+) for mecA/staph. Pt got 2 doses of rocephin for sepsis secondary to UTI/kidney stone.Discussed w attendaing and will broaden coverage, vancomycin ordered pharmacie to dose.
[2019-02-23] MEDS ORDERED: Vancomycin 1,750 MG in 0.9 % Sodium Chloride 250 ML IVPB SCH (06:00)
[2019-02-23] MEDS ORDERED: Aminoglycoside Consult 1 EACH MC ONE (08:10)
[2019-02-23] MEDS: Insulin LISPRO 300 UNITS/3 ML VIAL SQ SCH ×3 (08:38→17:06)
[2019-02-23] MEDS: cefTRIAXone 2,000 MG in Water for inj. (sterile) 20 ML 20 ML IVP SCH (08:39)
[2019-02-23] MEDS: Aspirin Enteric Coated 81 MG Tablet PO SCH (08:39)
--- NOTE | 2019-02-23 08:59 | Urology Progress Note ---
<Lorena Vail N - Last Filed: 02/23/19 08:56> Date of Encounter: 02/23/19 Time of Encounter: 08:00 - Assessment and Plan (1) Acute kidney injury Current Visit: Yes Status: Acute (2) UTI (urinary tract infection) Current Visit: Yes Status: Acute Qualifiers: Urinary tract infection type: acute cystitis Hematuria presence: without hematuria Qualified Code(s): N30.00 - Acute cystitis without hematuria (3) Ureteral calculus, right Current Visit: Yes Status: Acute Assessment and plan: Patient is a 58-year-old male who presents one day status post cystoscopy, right retrograde ureteral pyelography with intraoperative interpretation of radial graphic images in real time by surgeon to facilitate procedure, right double-J stent placement, attempted basket extraction. Vital signs are currently stable and afebrile. Urine culture is negative, and preliminary blood culture is positive for gram-positive cocci. Patient is receiving IV Rocephin and vancomycin. Discussed postoperative expectations with indwelling ureteral stent. Recommend awaiting final culture and sensitivity report before considering discharge. Progress Note Subjective: no new complaints Narrative: POD #1. Patient seen and examined standing in room in no apparent distress. Patient reports she is tolerating normal diet without nausea or vomiting. Patient is voiding without difficulty. Patient denies fever, chills, flank pain or gross hematuria. Patient voices concern for positive blood cultures. Objective Initial Vital Signs Temp Pulse Resp BP Pulse Ox 97.5 F L 96 18 181/99 98 02/21/19 20:15 02/21/19 20:15 02/21/19 20:15 02/21/19 20:15 02/21/19 20:15 - General physical appearance Present: no distress, no pain, obese - Respiratory Present: normal expansion, normal respiratory effort - Abdomen Present: soft, non tender - Genitourinary Present: other (No CVAT) - Integumentary Present: no rash, no abnormal pigmentation - Musculoskeletal Present: normal gait - Labs 02/22/19 07:14 02/22/19 07:14 Consult Discharge Plan - Plan [facility]errals: [facility] [Primary Care Provider[facility] - <Fortunato Pacheco W - Last Filed: 02/23/19 15:25> Date of Encounter: 02/23/19 - Assessment and Plan (1) Hydronephrosis Current Visit: Yes Status: Acute Qualifiers: Hydronephrosis type: with renal calculous obstruction Qualified Code(s): N13.2 - Hydronephrosis with renal and ureteral calculous obstruction (2) UTI (urinary tract infection) Current Visit: Yes Status: Acute Qualifiers: Urinary tract infection type: acute cystitis Hematuria presence: without hematuria Qualified Code(s): N30.00 - Acute cystitis without hematuria (3) Ureteral calculus, right Current Visit: Yes Status: Acute Assessment and plan: Patient seen and examined independently. I am in agreement with the assessment and plan as outlined by our Urologic Surgery Department Physician Dairy Supplies Sales Representative, Genna. Reviewed Home-going recommendation and need for follow-up and stent removal with patient in detail. I office will arrange for outpatient follow-up. Objective Initial Vital Signs Temp Pulse Resp BP Pulse Ox 97.5 F L 96 18 181/99 98 02/21/19 20:15 02/21/19 20:15 02/21/19 20:15 02/21/19 20:15 02/21/19 20:15 - Labs 02/23/19 11:02 02/23/19 11:02 Diabetes panel 02/23/19 Range/Units 11:02 Sodium 141 (136-145) mEq/L Potassium 4.4 (3.5-5.1) mEq/L Chloride 106 (98-107) mEq/L Carbon Dioxide 25 (23-29) mEq/L BUN 27 H (6-20) mg/dL Creatinine 1.51 H (0.70-1.30) mg/dL Glucose 179 H (70-105) mg/dL Calcium 9.3 (8.6-10.3) mg/dL Calcium panel 02/23/19 Range/Units 11:02 Calcium 9.3 (8.6-10.3) mg/dL Pituitary panel 02/23/19 Range/Units 11:02 Sodium 141 (136-145) mEq/L Potassium 4.4 (3.5-5.1) mEq/L Chloride 106 (98-107) mEq/L Carbon Dioxide 25 (23-29) mEq/L BUN 27 H (6-20) mg/dL Creatinine 1.51 H (0.70-1.30) mg/dL Glucose 179 H (70-105) mg/dL Calcium 9.3 (8.6-10.3) mg/dL Adrenal panel 02/23/19 Range/Units 11:02 Sodium 141 (136-145) mEq/L Potassium 4.4 (3.5-5.1) mEq/L Chloride 106 (98-107) mEq/L Carbon Dioxide 25 (23-29) mEq/L BUN 27 H (6-20) mg/dL Creatinine 1.51 H (0.70-1.30) mg/dL Glucose 179 H (70-105) mg/dL Calcium 9.3 (8.6-10.3) mg/dL
--- NOTE | 2019-02-23 10:40 | Internal Med Progress Note ---
Hospitalist Progress Note - Encounter Date of Encounter: 02/23/19 Time of Encounter: 11:00 - Subjective Interval History: Patient is a 58-year-old male who presented [facility] due to right flank pain found to have a 2 mm right distal ureteral stone now status post right double-J stent placement and attempted basket extraction. Patient now with positive blood cultures for gram-positive cocci and has been started on IV vancomycin in addition to continue IV Rocephin for ureteral stone above. - Exam Vitals: Temp Pulse Resp BP Pulse Ox 98.6 F 96 20 160/87 96 02/23/19 08:08 02/23/19 08:08 02/23/19 08:08 02/23/19 08:08 02/23/19 08:08 Exam: Vitals: Reviewed General: Obese, Alert and oriented x4. In no distress Skin: multiple healed scars HEENT: EOM, pupils equal, round and reactive. Cardiovascular: RRR, normal S1 & S2, no rubs, murmurs or gallops. Lungs: CTA b/l, no wheezes or crackles. Abdomen: Obese, soft, non-tender, no rigidity. Extremities: No deformity, no edema or tenderness, no joint swelling or clubbing. Neurological: Normal cognition and motor skills. Rest of the physical exam is non contributory - Assessment and Plan (1) Gram-positive cocci bacteremia Current Visit: Yes Status: Acute Assessment and Plan: Patient found to have gram-positive cocci on blood cultures and was started on IV vancomycin Infectious disease has been consulted and appreciate recommendations (2) Ureteral calculus, right Current Visit: Yes Status: Acute Assessment and Plan: Patient is a 58-year-old male who presented [facility] the [facility] due to right flank pain found to have a 2 mm right distal ureteral stone now status post right double-J stent placement and attempted basket extraction. Urology following an appreciate any additional recommendations (3) Hydronephrosis Current Visit: Yes Status: Acute Assessment and Plan: Secondary to and management as above (4) UTI (urinary tract infection) Current Visit: Yes Status: Acute Assessment and Plan: Urine cultures pending Will continue IV ceftriaxone (5) Acute kidney injury Current Visit: Yes Status: Acute Assessment and Plan: Suspect secondary to obstructive uropathy above. Will continue to monitor status post on extraction (6) CHF (congestive heart failure) Current Visit: No Status: Chronic Assessment and Plan: patient is euvolemic. (7) History of two vessel coronary artery bypass graft Current Visit: No Status: Chronic Assessment and Plan: pt is s/p double bypass. No hx of cath report on [place]. (8) T2DM (type 2 diabetes mellitus) Current Visit: No Status: Chronic Assessment and Plan: Coverage with sliding-scale insulin (9) Hypertension Current Visit: Yes Status: Suspected Assessment and Plan: Continue home medications (10) Tobacco abuse Current Visit: No Status: Chronic Assessment and Plan: current everyday smoker DVT Prophylaxis: Heparin subcutaneous - Time Spent with Patient Total time spent is greater than 50% in coordination of care (as documented) at patient's floor/unit and/or counseling patient: Internal Medicine: Result - Labs CBC & Chem 7: 02/23/19 11:02 02/23/19 11:02 - Impressions Impressions Retrograde Pyelogram 02/22/19 14:28 IMPRESSION: Intraprocedural fluoroscopic spot images as above. See separate procedure report for more information. D/ / Jay Johnston MD / Jay Johnston MD Interpreting Provider: Jay Johnston MD Consult Discharge Plan - Plan [facility]: [facility] [Primary Care Provider[facility] - (3) Hydronephrosis Qualifiers: Hydronephrosis type: with renal calculous obstruction Qualified Code(s): N13.2 - Hydronephrosis with renal and ureteral calculous obstruction (4) UTI (urinary tract infection) Qualifiers: Urinary tract infection type: acute cystitis Hematuria presence: without hematuria Qualified Code(s): N30.00 - Acute cystitis without hematuria (6) CHF (congestive heart failure) Qualifiers: Heart failure type: unspecified Heart failure chronicity: chronic Qualified Code(s): I50.9 - Heart failure, unspecified (8) T2DM (type 2 diabetes mellitus) 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
[2019-02-23 11:17] LABS: Basophils % 0.1 %; Eosinophils % 0.3 %; Hematocrit 42.7 % (37.5-50.1); Hemoglobin 13.8 g/dL (12.9-16.9); Immature Granulocytes % 0.5 % (0-4); Lymphocytes # 2.6 K/mcL (0.6-4.6); Lymphocytes % 19.3 %; Mean Corpuscular HGB Conc 32.3 g/dL (31.6-35.5); Mean Corpuscular Hemoglobin 29.5 pg (28.0-33.3); Mean Corpuscular Volume 91.2 fL (83.0-100.0); Mean Platelet Volume 10.1 fL (9.4-12.4); Monocytes # 1.3 K/mcL (0.0-1.3); Monocytes % 9.5 %; Neutrophils # 9.6 K/mcL (1.6-8.9); Platelet Count 275 K/mcL (140-400); Red Blood Count 4.68 M/mcL (4.19-5.50); Red Cell Distribution Width 13.3 % (11.5-14.5); Segmented Neutrophils % 70.3 %
[2019-02-23 11:35] LABS: Calcium 9.3 mg/dL (8.6-10.3); Potassium 4.4 mEq/L (3.5-5.1)
--- NOTE | 2019-02-23 14:50 | Infectious Disease Consult ---
Infectious Disease-Consult - Encounter Date/Time Date of Encounter: 02/23/19 Time of Encounter: 14:48 - Data of Consult Patient: new to practice Reason for consult: CoNS bacteremia Consult date: 02/23/19 Requesting Physician: Santiago Mares Primary Care Provider: PCP [facility] HPI: Patient is a 58-year-old gentleman with past medical history mentioned below including diabetes, hypertension, dyslipidemia and obesity presented apparently with kidney stones in acute kidney injury. Patient apparently had right flank pain on the right side no radiation. No fevers no chills no nausea no vomiting. Since admission, patient has been afebrile, no tachycardia and no tachypnea. Presenting labs revealed a WBC of 15.8 with normal differential. Chemistry revealed BUN 36 creatinine 2.64 which improved to 27 and 1.51. Lactic acid was negative. Patient had blood cultures done and one/2 sets positive for Staphyl ococcus species not Staphylococcus aureus with the Mec-A gene. Currently patient denies any headache no chest pain or shortness of breath no nausea no vomiting no diarrhea no urinary symptoms. - ROS Review of Systems: Review of system is negative other for what mentioned in history of present illness - Results CBC & Chem 7: 02/23/19 11:02 02/23/19 11:02 - Exam Vitals: Temp Pulse Resp BP Pulse Ox 98.1 F 76 18 154/83 96 02/23/19 12:31 02/23/19 12:31 02/23/19 12:31 02/23/19 12:31 02/23/19 12:31 Exam: GENERAL: Comfortable. Laying in bed NAD HEENT: ANGELICA, EOMI LUNGS: Good air sounds bilaterally, no wheezing or rhonchi CV: RRR, S1 S2 ABDOMEN: Soft, nontender, + bowel sounds EXT: Adequate perfusion. No edema NEURO: A&OX3; no focal deficit Aspirin [Adult Aspirin] 81 mg PO DAILY 02/21/19 [History] Gabapentin [Neurontin] 300 mg PO HS 02/21/19 [History] GlipiZIDE [Glipizide Xl] 7.5 mg PO BID 02/21/19 [History] Metformin HCl [Glucophage] 1,000 mg PO BID 02/21/19 [History] Metoprolol [Lopressor] 25 mg PO BID 02/21/19 [History] Oxybutynin [Ditropan] 5 mg PO DAILY 02/21/19 [History] Ranitidine HCl [Zantac] 300 mg PO HS 02/21/19 [History] Simvastatin [Zocor] 40 mg PO HS 02/21/19 [History] Tamsulosin HCl [Flomax] 0.4 mg PO DAILY 02/21/19 [History] Allergy/AdvReac Type Severity Reaction Status Date / Time No Known Allergies Allergy Verified 02/21/19 22:41 - Assessment and Plan (1) Gram-positive cocci bacteremia Current Visit: Yes Status: Acute 1/2 sets positive 02/21/2019 gram-positive cocci. PCR positive for staph species with positive MecA gene This is a coag negative staph and the fact that it is 1 out of 2 sets with no associated sepsis or endocarditis stigmata makes me believe that this is a contaminant and not a true infection DC vancomycin Discussed with Dr. Mares No further recommendations needed We will sign off please call us with any further issues SNOMED Code(s): 121829199957, 188160805633 (2) Leukocytosis Current Visit: Yes Status: Acute Likely secondary to inflammation from kidney stone and acute kidney injury No obvious signs of infection Qualifiers: Leukocytosis type: unspecified Qualified Code(s): D72.829 - Elevated white blood cell count, unspecified SNOMED Code(s): 024222048, 688155496 (3) Acute kidney injury Current Visit: Yes Status: Acute Likely obstructive uropathy Improving SNOMED Code(s): 13342955, 71634284 (4) Tobacco abuse Current Visit: No Status: Chronic SNOMED Code(s): 804357972 (5) T2DM (type 2 diabetes mellitus) Current Visit: No Status: Chronic Qualifiers: Diabetes mellitus chcf insulin use: unspecified chcf insulin use status Diabetes mellitus complication status: with unspecified complications Qualified Code(s): E11.8 - Type 2 diabetes mellitus with unspecified complicati ons SNOMED Code(s): 65241114 (6) Obesity Current Visit: No Status: Chronic Qualifiers: Obesity type: due to excess calories Obesity classification: adult class 2 (BMI 35 - 39.9) Serious obesity comorbidity presence: without serious comorbidity Body mass index: BMI 38.0-38.9 Qualified Code(s): E66.09 - Other obesity due to excess calories; Z68.38 - Body mass index (BMI) 38.0-38.9, adult SNOMED Code(s): 005389951, 286493668 Past Med Surg Social Fam HX - Past Medical History Medical history: cancer, diabetes, hypertension, kidney stones Additional medical history: Bladder cancer Psychiatric history: no psych history - Past Surgical History Additional surgical history: Double bypass - Social History Smoking Status: Current every day smoker Packs per day: 1 Smokeless Tobacco Status: No Alcohol use: none Drug use: none - Family History Mother Adopted: No Hx Family Endocrine Disorder: Yes Father Hx Family Endocrine Disorder: Yes (t2dm) Consult Discharge Plan - Plan [facility]errals: [facility] [Primary Care Provider] -
[2019-02-23] MEDS ORDERED: Famotidine 20 MG TABLET PO SCH (21:00)
[2019-02-23] MEDS: Gabapentin 300 MG CAPSULE PO SCH (21:55)
[2019-02-23] MEDS: Insulin DETEMIR 100 UNIT/ML X5UNITS SQ SCH (22:18)
[2019-02-24] MEDS: *HR* Heparin 5,000 UNIT/ML VIAL SQ SCH (05:54)
[2019-02-24 06:08] LABS: Basophils % 0.4 %; Eosinophils # 0.3 K/mcL (0.0-0.6); Eosinophils % 2.8 %; Hematocrit 42.3 % (37.5-50.1); Hemoglobin 13.2 g/dL (12.9-16.9); Immature Granulocytes % 0.4 % (0-4); Lymphocytes # 4.2 K/mcL (0.6-4.6); Lymphocytes % 36.9 %; Mean Corpuscular HGB Conc 31.2 g/dL (31.6-35.5); Mean Platelet Volume 10.3 fL (9.4-12.4); Monocytes # 1.1 K/mcL (0.0-1.3); Monocytes % 9.3 %; Neutrophils # 5.7 K/mcL (1.6-8.9); Platelet Count 266 K/mcL (140-400); Red Blood Count 4.55 M/mcL (4.19-5.50); Red Cell Distribution Width 13.5 % (11.5-14.5); Segmented Neutrophils % 50.2 %
[2019-02-24 06:29] LABS: BUN/Creatinine Ratio 20 (6-26); Blood Urea Nitrogen 26 mg/dL (6-20); Calcium 8.9 mg/dL (8.6-10.3); Carbon Dioxide 26 mEq/L (23-29); Chloride 108 mEq/L (98-107); Glucose 167 mg/dL (70-105); Osmolality,Calculated 305 (280-300); Potassium 4.5 mEq/L (3.5-5.1); Sodium 143 mEq/L (136-145); Vancomycin,Random 5 mcg/mL; eGFR For Non-African Americans 57 (> 60)
[2019-02-24] MEDS: cefTRIAXone 2,000 MG in Water for inj. (sterile) 20 ML 20 ML IVP SCH (08:35)
[2019-02-24] MEDS: Aspirin Enteric Coated 81 MG Tablet PO SCH (08:35)
[2019-02-24] MEDS: Insulin LISPRO 300 UNITS/3 ML VIAL SQ SCH ×2 (08:38→11:44)
--- NOTE | 2019-02-24 08:50 | Urology Progress Note ---
Date of Encounter: 02/24/19 Time of Encounter: 08:00 - Assessment and Plan (1) Acute kidney injury Current Visit: Yes Status: Acute (2) UTI (urinary tract infection) Current Visit: Yes Status: Acute Qualifiers: Urinary tract infection type: acute cystitis Hematuria presence: without hematuria Qualified Code(s): N30.00 - Acute cystitis without hematuria (3) Ureteral calculus, right Current Visit: Yes Status: Acute Assessment and plan: Patient is a 58-year-old male who presents 2 days status post cystoscopy, right retrograde ureteral pyelography with intraoperative interpretation of radio- graphic images in real time by surgeon to facilitate procedure, right double-J stent placement, attempted basket extraction. Discussed expectations with indwelling ureteral stent. Reviewed recommendations outlined by infectious disease. Positive blood culture is likely a contaminant. Vital signs remain st able and afebrile. Outpatient urologic follow-up with Dr. Pacheco will be scheduled. Patient may be discharged from a urologic standpoint. Progress Note Subjective: no new complaints, feels better Narrative: POD #2. Patient seen and examined standing at bedside in no apparent distress. Patient reports he is tolerating normal diet without nausea or vomiting. Patient states he is voiding without difficulty. Patient denies fever, chills, chest pain, dyspnea. Objective Initial Vital Signs Temp Pulse Resp BP Pulse Ox 97.5 F L 96 18 181/99 98 02/21/19 20:15 02/21/19 20:15 02/21/19 20:15 02/21/19 20:15 02/21/19 20:15 - General physical appearance Present: well developed, no distress, no pain - Respiratory Present: normal expansion, normal respiratory effort - Abdomen Present: soft, non tender - Integumentary Present: no rash, no abnormal pigmentation - Musculoskeletal Present: normal posture - Psychiatric Present: oriented to time, oriented to person, oriented to place, speech is normal, memory intact - Labs 02/24/19 05:09 02/24/19 05:09 Diabetes panel 02/23/19 02/24/19 Range/Units 11:02 05:09 Sodium 141 143 (136-145) mEq/L Potassium 4.4 4.5 (3.5-5.1) mEq/L Chloride 106 108 H (98-107) mEq/L Carbon Dioxide 25 26 (23-29) mEq/L BUN 27 H 26 H (6-20) mg/dL Creatinine 1.51 H 1.29 (0.70-1.30) mg/dL Glucose 179 H 167 H (70-105) mg/dL Calcium 9.3 8.9 (8.6-10.3) mg/dL Calcium panel 02/23/19 02/24/19 Range/Units 11:02 05:09 Calcium 9.3 8.9 (8.6-10.3) mg/dL Pituitary panel 02/23/19 02/24/19 Range/Units 11:02 05:09 Sodium 141 143 (136-145) mEq/L Potassium 4.4 4.5 (3.5-5.1) mEq/L Chloride 106 108 H (98-107) mEq/L Carbon Dioxide 25 26 (23-29) mEq/L BUN 27 H 26 H (6-20) mg/dL Creatinine 1.51 H 1.29 (0.70-1.30) mg/dL Glucose 179 H 167 H (70-105) mg/dL Calcium 9.3 8.9 (8.6-10.3) mg/dL Adrenal panel 02/23/19 02/24/19 Range/Units 11:02 05:09 Sodium 141 143 (136-145) mEq/L Potassium 4.4 4.5 (3.5-5.1) mEq/L Chloride 106 108 H (98-107) mEq/L Carbon Dioxide 25 26 (23-29) mEq/L BUN 27 H 26 H (6-20) mg/dL Creatinine 1.51 H 1.29 (0.70-1.30) mg/dL Glucose 179 H 167 H (70-105) mg/dL Calcium 9.3 8.9 (8.6-10.3) mg/dL Consult Discharge Plan - Plan [facility]errals: [facility] [Primary Care Provider] -
--- NOTE | 2019-02-24 10:48 | Discharge Summary ---
- NOTES TO OUTPATIENT PROVIDER Notes to Outpatient Provider: Follow-up with urology as an outpatient Orders not resulted at time of discharge: Pending orders 02/21/19 22:08 Culture,Blood [BC] Stat 02/23/19 11:02 Culture,Blood [BC] Stat 02/25/19 04:00 Basic Metabolic Panel AM 0400 Complete Blood Count [HEME] AM 0400 02/26/19 04:00 Basic Metabolic Panel AM 0400 Complete Blood Count [HEME] AM 0400 02/27/19 04:00 Basic Metabolic Panel AM 0400 Complete Blood Count [HEME] AM 0400 Date of Encounter: 02/24/19 Time of Encounter: 11:00 - Discharge Diagnosis (1) Gram-positive cocci bacteremia Priority: Secondary Status: Ruled-out (2) Ureteral calculus, right Priority: Primary Status: Acute (3) Hydronephrosis Priority: Primary Status: Acute Qualifiers: Hydronephrosis type: with renal calculous obstruction Qualified Code(s): N13.2 - Hydronephrosis with renal and ureteral calculous obstruction (4) UTI (urinary tract infection) Priority: Secondary Status: Acute Qualifiers: Urinary tract infection type: acute cystitis Hematuria presence: without hematuria Qualified Code(s): N30.00 - Acute cystitis without hematuria (5) Acute kidney injury Priority: Secondary Status: Acute (6) CHF (congestive heart failure) Priority: Secondary Status: Chronic Qualifiers: Heart failure type: unspecified Heart failure chronicity: chronic Qualified Code(s): I50.9 - Heart failure, unspecified (7) History of two vessel coronary artery bypass graft Priority: Secondary Status: Chronic (8) T2DM (type 2 diabetes mellitus) Priority: Secondary Status: Chronic Qualifiers: Diabetes mellitus emt intermediate insulin use: unspecified emt intermediate insulin use status Diabetes mellitus complication status: with unspecified complications Qualified Code(s): E11.8 - Type 2 diabetes mellitus with unspecified complications (9) Hypertension Priority: Secondary Status: Suspected Qualifiers: Hypertension type: essential hypertension Qualified Code(s): I10 - Essential (primary) hypertension (10) Tobacco abuse Priority: Secondary Status: Chronic Hospital course: Patient is a 58-year-old male with past medical history significant for T2DM, morbid obesity, hx of CABG, hx of CHF (no records), HTN, and tobacco abuse who presented [place] a transfer [place] due to 1 day history of right flank pain with associated symptoms of nausea/vomiting. At the [facility] he was found to have a UTI and kidney stone on imaging. He was given IM rocephin 1g. He was then transferred to [facility] for further workup and evaluation. Patients hospital stay urology was consulted and patient now status post right double-J stent placement and attempted basket extraction. Patient also with acute kidney injury that resolved with IV fluids. Patient will be discharged to follow-up with urology as an outpatient. - Time Spent with Patient Total time spent providing and/or coordinating discharge services: Time spent: Less than 30 minutes - Discharge Medications Prescriptions: Continued Aspirin [Adult Aspirin] 81 mg PO DAILY Gabapentin [Neurontin] 300 mg PO HS GlipiZIDE [Glipizide Xl] 7.5 mg PO BID Metformin HCl [Glucophage] 1,000 mg PO BID Metoprolol [Lopressor] 25 mg PO BID Oxybutynin [Ditropan] 5 mg PO DAILY Ranitidine HCl [Zantac] 300 mg PO HS Simvastatin [Zocor] 40 mg PO HS Tamsulosin HCl [Flomax] 0.4 mg PO DAILY Home Medications: Aspirin [Adult Aspirin] 81 mg PO DAILY 02/21/19 [History] Gabapentin [Neurontin] 300 mg PO HS 02/21/19 [History] GlipiZIDE [Glipizide Xl] 7.5 mg PO BID 02/21/19 [History] Metformin HCl [Glucophage] 1,000 mg PO BID 02/21/19 [History] Metoprolol [Lopressor] 25 mg PO BID 02/21/19 [History] Oxybutynin [Ditropan] 5 mg PO DAILY 02/21/19 [History] Ranitidine HCl [Zantac] 300 mg PO HS 02/21/19 [History] Simvastatin [Zocor] 40 mg PO HS 02/21/19 [History] Tamsulosin HCl [Flomax] 0.4 mg PO DAILY 02/21/19 [History] Allergies/Adverse Reactions: Allergy/AdvReac Type Severity Reaction Status Date / Time No Known Allergies Allergy Verified 02/21/19 22:41 Date of admission: 02/21/19 23:03 Primary care physician: PCP [place] Consults: 02/21/19 21:26 Consult to Urology [CONS] Stat Consulting Provider: Urology [facility] Reason for Consult: right ureteral stone. YANETH. UTI. Time Notified: 21:27 Call Completed: Yes 02/23/19 10:40 Consult to Infectious Diseases [CONS] Routine Consulting Provider: Infectious Disease [place] Reason for Consult: positive blood cultures Call Completed: Yes - Constitutional Vitals: Temp Pulse Resp BP Pulse Ox 98.1 F 75 20 151/89 96 02/24/19 08:17 02/24/19 08:17 02/24/19 08:17 02/24/19 08:17 02/24/19 08:17 General appearance: Present: cooperative, A&O X 3, obese Exam: Gen.: Nonacute distress, alert and oriented 3 Skin: Normal color - Patient Status Disposition: Home, Self-Care Condition: Good - Discharge Instructions Instructions: Acute Kidney Injury (DC), Kidney Stones (DC) Follow Up With: Fortunato Pacheco [Partnered Physician] - ([facility] with Junior Siddiqi as out patient in 1 week) [facility]Primary Care Provider[facility] - 03/01/19 10:00 am
[2019-02-24 11:33] VITALS: BP 126/66
== END 2019-02-24 13:38 | disposition home or self-care (01) | DRG 854 ==
LOC: 2ANU 20:09 → EMEROOARM 20:09 → SUATTDRO 23:03 → 2ANU 23:58
PROVIDERS: ADMIT Internal Medicine; ATTEND Hospitalist

== ENCOUNTER 2020-10-26 12:38 | Inpatient (IN) ==
[2020-10-26] MEDS ORDERED: cefTRIAXone 1,000 MG in Water for inj. (sterile) 10 ML IVP ONE (12:58)
[2020-10-26] MEDS ORDERED: Azithromycin 500 MG in 0.9 % Sodium Chloride 250 ML IVPB ONE (12:58)
[2020-10-26] MEDS ORDERED: Furosemide 40 MG/4 ML VIAL IVP ONE (14:43)
[2020-10-26] MEDS ORDERED: Acetaminophen 325 MG TABLET PO PRN (14:47)
[2020-10-26] MEDS ORDERED: Ondansetron 4 MG/2 ML VIAL IVP PRN (14:47)
[2020-10-26] MEDS ORDERED: Nicotine 2 MG GUM BC PRN (15:01)
[2020-10-26] MEDS: Nicotine 21 MG PATCH.TD24 TD SCH (19:40)
[2020-10-26] MEDS: Gabapentin 300 MG CAPSULE PO SCH (19:40)
[2020-10-26] MEDS: Famotidine 20 MG TABLET PO SCH (19:40)
[2020-10-26] MEDS ORDERED: Dextrose Gel 15 GM/37.5 ML TUBE PO PRN ×2 (20:51)
[2020-10-26] MEDS ORDERED: D5% in Water 1,000 ML IVC PRN (20:51)
[2020-10-26] MEDS ORDERED: *HR* Dextrose 50 % in Water (Vial) 50 ML VIAL IVP PRN (20:51)
[2020-10-26] MEDS: Insulin LISPRO 300 UNITS/3 ML VIAL SUBQ SCH (21:05)
[2020-10-27] MEDS: *HR* Enoxaparin 40 MG/0.4 ML SYRINGE SQ SCH (04:43)
[2020-10-27] MEDS: Insulin LISPRO 300 UNITS/3 ML VIAL SUBQ SCH ×4 (07:29→21:00)
[2020-10-27] MEDS: Furosemide 20 MG/2 ML VIAL IVP SCH ×2 (07:30→16:40)
[2020-10-27 08:04] LABS: Hematocrit 43.1 % (37.5-50.1); Hemoglobin 14.3 g/dL (12.9-16.9); Mean Corpuscular HGB Conc 33.2 g/dL (31.6-35.5); Mean Corpuscular Hemoglobin 28.8 pg (28.0-33.3); Mean Corpuscular Volume 86.9 fL (83.0-100.0); Mean Platelet Volume 10.8 fL (9.4-12.4); Platelet Count 190 K/mcL (140-400); Red Blood Count 4.96 M/mcL (4.19-5.50); Red Cell Distribution Width 13.2 % (11.5-14.5); White Blood Count 10.1 K/mcL (4.3-11.1)
[2020-10-27] MEDS: cefTRIAXone 1,000 MG in Water for inj. (sterile) 10 ML IVP SCH (08:39)
[2020-10-27] MEDS: Nicotine 21 MG PATCH.TD24 TD SCH ×2 (08:40→10:03)
[2020-10-27] MEDS: Azithromycin 250 MG TABLET PO SCH (08:40)
[2020-10-27] MEDS: Dexamethasone Sodium Phos/PF 10 MG/ML VIAL IVP SCH (08:40)
[2020-10-27] MEDS: Aspirin Enteric Coated 81 MG Tablet PO SCH (08:40)
[2020-10-27 10:28] LABS: Alanine Aminotransferase 36 Units/L (7-52); Albumin/Globulin Ratio 0.8 (1.1-2.2); Alkaline Phosphatase 48 Units/L (34-104); Aspartate Amino Transferase 43 Units/L (13-39); BUN/Creatinine Ratio 20 (6-26); Bilirubin,Direct 0.1 mg/dL (0.0-0.2); Bilirubin,Indirect 0.2 mg/dL (0.0-1.0); Bilirubin,Total 0.3 mg/dL (0.3-1.0); Blood Urea Nitrogen 18 mg/dL (8-23); Calcium 7.8 mg/dL (8.6-10.3); Carbon Dioxide 23 mEq/L (23-29); Chloride 96 mEq/L (98-107); Globulin 3.6 g/dL (2.4-3.5); Glucose 330 mg/dL (70-105); Magnesium 1.8 mg/dL (1.6-2.6); Osmolality,Calculated 283 (280-300); Phosphorous 1.7 mg/dL (2.7-4.5); Potassium 4.5 mEq/L (3.5-5.1); Sodium 129 mEq/L (136-145); Total Protein 6.6 g/dL (6.4-8.9); eGFR For African Americans > 60 (> 60); eGFR For Non-African Americans > 60 (> 60)
[2020-10-27] MEDS: Gabapentin 300 MG CAPSULE PO SCH (20:59)
[2020-10-27] MEDS: Famotidine 20 MG TABLET PO SCH (20:59)
[2020-10-28] MEDS: *HR* Enoxaparin 40 MG/0.4 ML SYRINGE SQ SCH (05:49)
[2020-10-28 06:45] LABS: Hematocrit 45.2 % (37.5-50.1); Hemoglobin 14.8 g/dL (12.9-16.9); Mean Corpuscular HGB Conc 32.7 g/dL (31.6-35.5); Mean Corpuscular Hemoglobin 29.4 pg (28.0-33.3); Mean Corpuscular Volume 89.7 fL (83.0-100.0); Mean Platelet Volume 10.9 fL (9.4-12.4); Platelet Count 252 K/mcL (140-400); Red Blood Count 5.04 M/mcL (4.19-5.50); Red Cell Distribution Width 13.3 % (11.5-14.5); White Blood Count 9.4 K/mcL (4.3-11.1)
[2020-10-28 07:09] LABS: BUN/Creatinine Ratio 20 (6-26); Blood Urea Nitrogen 19 mg/dL (8-23); Calcium 8.4 mg/dL (8.6-10.3); Carbon Dioxide 27 mEq/L (23-29); Chloride 95 mEq/L (98-107); Glucose 166 mg/dL (70-105); Osmolality,Calculated 280 (280-300); Phosphorous 2.9 mg/dL (2.7-4.5); Potassium 3.8 mEq/L (3.5-5.1); Sodium 132 mEq/L (136-145); eGFR For African Americans > 60 (> 60); eGFR For Non-African Americans > 60 (> 60)
[2020-10-28 07:28] VITALS: BP 142/88
[2020-10-28] MEDS: Dexamethasone Sodium Phos/PF 10 MG/ML VIAL IVP SCH (07:47)
[2020-10-28] MEDS: Furosemide 20 MG/2 ML VIAL IVP SCH (07:47)
[2020-10-28] MEDS: Aspirin Enteric Coated 81 MG Tablet PO SCH (07:48)
[2020-10-28] MEDS: cefTRIAXone 1,000 MG in Water for inj. (sterile) 10 ML IVP SCH (07:48)
[2020-10-28] MEDS: Azithromycin 250 MG TABLET PO SCH (07:48)
[2020-10-28] MEDS: Insulin LISPRO 300 UNITS/3 ML VIAL SUBQ SCH ×3 (07:49→16:49)
[2020-10-28] MEDS: Nicotine 21 MG PATCH.TD24 TD SCH (07:49)
[2020-10-28] MEDS ORDERED: levoFLOXacin 750 MG TABLET PO SCH (09:00)
== END 2020-10-28 17:45 | disposition home or self-care (01) | DRG 871 ==
LOC: EMEROOARM 12:38 → 2NENU 12:38 → SUATTDRO 15:49 → 2NENU 16:38
PROVIDERS: ADMIT Internal Medicine; ATTEND Internal Medicine